=== PATIENT | female | born 1985 | race African-American/Black ===

== ENCOUNTER 2022-01-07 10:19 | Emergency (ER) | payer SELFPAY ==
[2022-01-07] MEDS ORDERED: Acetaminophen 500 MG TAB ONE (11:43)
[2022-01-07] MEDS ORDERED: Ibuprofen 800 MG TAB ONE (11:43)
== END 2022-01-07 13:08 | disposition home or self-care (01) ==
LOC: ERS 10:19
DX: H66.91 Otitis media, unspecified, right ear (principal); H61.23 Impacted cerumen, bilateral
CPT/HCPCS: 87804; 99283